=== PATIENT | male | born 1975 | race Caucasian/White ===

== ENCOUNTER 2023-09-17 05:36 | Observation (INO) | payer BC ==
[~2023-09-17] VITALS: Ht 172.7 cm; Wt 82.5 kg
[2023-09-17] MEDS ORDERED: SYNT75TA PO (05:46)
[2023-09-17] MEDS ORDERED: MAGN400C PO (05:46)
[2023-09-17] MEDS ORDERED: VITAD400CA PO (05:46)
[2023-09-17] MEDS ORDERED: KLON0.5T PO (05:46)
[2023-09-17] MEDS ORDERED: VITA250T7 PO (05:46)
[2023-09-17] MEDS ORDERED: IRON1TAB2 PO (05:46)
[2023-09-17] MEDS ORDERED: MAALOX 30 ML SUSP *UDC PO ONE (07:10)
[2023-09-17] MEDS ORDERED: dexAMETHasone 20MG/5ML VIAL IM ONE (07:20)
[2023-09-17] MEDS ORDERED: MED REC IN PROGRESS XX SCH (09:20)
[2023-09-17 09:27] LABS: HEMATOCRIT 44.3 % (42.0-52.0); HEMOGLOBIN 15.2 g/dl (13.5-17.5); MEAN CORPUSCULAR HEMOGLOBIN 30.2 pg (27.0-33.0); MEAN CORPUSCULAR HGB CONC 34.3 g/dl (32.0-36.5); MEAN CORPUSCULAR VOLUME 88.1 fl (80.0-96.0); PLATELET COUNT, AUTOMATED 206 10^3/uL (150-450); RED BLOOD COUNT 5.03 10^6/uL (4.30-6.10); WHITE BLOOD COUNT 11.2 10^3/uL (4.0-10.0)
[2023-09-17] MEDS ORDERED: VITA200032 PO (09:34)
[2023-09-17] MEDS ORDERED: VALA500T5 PO (09:34)
[2023-09-17] MEDS ORDERED: HOME MED LIST COMPLETE! XX SCH (09:35)
[2023-09-17 09:49] LABS: BLOOD UREA NITROGEN 18 MG/DL (9-23); CALCIUM LEVEL 8.9 MG/DL (8.5-10.1); CARBON DIOXIDE LEVEL 26 MMOL/L (20-31); CHLORIDE LEVEL 103 MMOL/L (98-107); CREATININE FOR GFR 0.92 MG/DL (0.70-1.30); GLOMERULAR FILTRATION RATE > 60.0 (>60); GLUCOSE, FASTING 116 MG/DL (60-100); POTASSIUM SERUM 4.6 MMOL/L (3.5-5.1); SODIUM LEVEL 137 MMOL/L (136-145)
[2023-09-17 10:03] LABS: RSV AMPLIFICATION NEGATIVE (NEGATIVE)
[2023-09-17] MEDS ORDERED: PANTOPRAZOLE 40MG VIAL IV ONE (10:55)
[2023-09-17] MEDS ORDERED: KETOROLAC 30 MG/ML 1ML VIAL IV ONE (10:55)
[2023-09-17] MEDS ORDERED: D5W/0.45% SODIUM CHLORIDE 1,000 ML IV SCH (10:55)
[2023-09-17 14:35] VITALS: BP 128/67; TEMP 97; O2SAT 97
[2023-09-17] MEDS ORDERED: KETOROLAC 30 MG/ML 1ML VIAL IV PRN (18:50)
[2023-09-17] MEDS ORDERED: MEDR4PAK PO (19:20)
[2023-09-17 21:44] VITALS: BP 132/71; TEMP 97.7; O2SAT 98
== END 2023-09-17 22:15 | disposition home or self-care (01) ==
LOC: M ED 05:36 → M ED INP 05:37 → ENRESERV 13:39 → M MS5PR 14:25
PROVIDERS: ADMIT Internal Medicine Nephrology; ATTEND Internal Medicine Nephrology
DX: T27.0XXA Burn of larynx and trachea, initial encounter (principal); T31.0 Burns involving less than 10% of body surface; X10.1XXA Contact with hot food, initial encounter; Y92.89 Other specified places as the place of occurrence of the external cause; Y93.89 Activity, other specified; Y99.8 Other external cause status; E89.0 Postprocedural hypothyroidism; Z72.0 Tobacco use; Z88.5 Allergy status to narcotic agent; Z88.4 Allergy status to anesthetic agent; Z91.011 Allergy to milk products; Z91.013 Allergy to seafood; Z79.899 Other long term (current) drug therapy; Z79.890 Hormone replacement therapy; Z83.3 Family history of diabetes mellitus; Z82.49 Family history of ischemic heart disease and other diseases of the circulatory system
CPT/HCPCS: 31575; 80048; 85027; 87631; 94760; 96361; 96372; 96374; 96375; 96376; 99284; C9113; J1100; J1885